=== PATIENT | male | born 1990 | race Caucasian/White ===

== ENCOUNTER → 2023-10-13 | Outpatient (CLI) | payer OTHER, SELFPAY ==
--- NOTE | 2023-10-13 16:20 | RAD_ITS ---
STUDY: X-RAY - THORACIC SPINE REASON FOR EXAM: Male, 33 years old. Segmental and somatic dysfunction of thoracic regiPain in sadaf, TECHNIQUE: 3 view(s) of the thoracic spine were obtained. COMPARISON: None. FINDINGS: Normal kyphosis of the thoracic spine. Mild dextroscoliosis centered at T6. Normal thoracic vertebrae and endplates. Normal disc space heights. The soft tissue structures are unremarkable. RAD/Thoracic Spine 2 Views IMPRESSION: Mild dextroscoliosis. Electronically Signed: Malvin Tirado MD at 9:26 EDT ,
--- NOTE | 2023-10-13 16:20 | RAD_ITS ---
STUDY: X-RAY - LUMBAR SPINE REASON FOR EXAM: Male, 33 years old. 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 COMPARISON: None FINDINGS: Normal lumbar lordosis. Mild levoscoliosis centered at L4. There is a normal alignment of the vertebrae. There is multilevel endplate spondylosis of the lumbar vertebrae. There is multi-level degenerative disc disease with multi-level disc space narrowing. There is multilevel facet hypertrophy. 12 mm round calcific opacity overlying the right kidney consistent with a right renal stone. RAD/L/S Spine Min 4 Views IMPRESSION: Mild levoscoliosis with degenerative disc disease. MRI may be useful. Suspect right renal stone. Electronically Signed: Malvin Tirado MD at 9:28 EDT ,
== END | disposition home or self-care (01) ==
PROVIDERS: Referring Provider Chiropractor Orthopedic; Visit Provider Chiropractor Orthopedic
DX: M99.02 Segmental and somatic dysfunction of thoracic region (principal); M99.13 Subluxation complex (vertebral) of lumbar region; M54.6 Pain in thoracic spine
CPT/HCPCS: 72070; 72110